=== PATIENT | female | born 1970 | race African-American/Black ===

== ENCOUNTER 2017-06-26 20:57 | Emergency (ER) | payer OTHER ==
[2017-06-26 21:05] VITALS: BP 122/74; PULSE 87; TEMP 97.9
[2017-06-26] MEDS ORDERED: LIDOCAINE VISCOUS 2% ORAL/TOP 20 ML UNIT-DOSE CUP MM ONE (21:45)
--- NOTE | 2017-06-26 21:59 | PDOC ---
History of Present Illness - General Chief Complaint: Foreign Body (FB) Stated Complaint: FOOD STUCK IN THROAT Time Seen by Provider: 06/26/17 21:18 History Source: Patient Exam Limitations: No Limitations - History of Present Illness Initial Comments: 06/26/17 21:46 Patient is a 46 year old female with history of allergies complaining of foreign body sensation to the throat since 1945 this evening while eating soup. States she felt like a fish bone got stuck in her throat. States she's has been eating bread, potato, drank water, vomited and now feels pain straight across the throat. PMD: Dr. Ken ENT: Dr. Bell PMHX: as above PSOCHX: neg cig, etoh, drug ALL: NKDA GENERAL/CONSTITUTIONAL: [No fever or chills. No weakness. No weight change.] HEAD, EYES, EARS, NOSE AND THROAT: [No change in vision. No ear pain or discharge. No sore throat.] CARDIOVASCULAR: [No chest pain or shortness of breath.] RESPIRATORY: [No cough, wheezing, or hemoptysis.] GASTROINTESTINAL: [No nausea, vomiting, diarrhea or constipation. No rectal bleeding.] GENITOURINARY: [No dysuria, frequency, or change in urination.] MUSCULOSKELETAL: [No joint or muscle swelling or pain. No neck or back pain.] SKIN AND BREASTS: [No rash or easy bruising.] NEUROLOGIC: [No headache, vertigo, loss of consciousness, or loss of sensation.] PSYCHIATRIC: [No depression or anxiety.] ENDOCRINE: [No increased thirst. No abnormal weight change.] HEMATOLOGIC/LYMPHATIC: [No anemia, easy bleeding, or history of blood clots.] ALLERGIC/IMMUNOLOGIC: [No hives or skin allergy. No latex allergy.] GENERAL: [The patient is awake, alert, and fully oriented, in no acute distress. ] HEAD: [Normal with no signs of trauma.] EYES: [Pupils equal, round and reactive to light, extraocular movements intact, sclera anicteric, conjunctiva clear.] ENT: [Ears normal, nares patent, oropharynx clear, no FB noted, no exudates. Moist mucous membranes.] NECK: [Normal range of motion, supple without lymphadenopathy, JVD, or masses.] LUNGS: [Breath sounds equal, clear to auscultation bilaterally. No wheezes, and no crackles.] HEART: [Regular rate and rhythm, normal S1 and S2 without murmur, rub.] ABDOMEN: [Soft, nontender, normoactive bowel sounds. No guarding, no rebound. No masses.] EXTREMITIES: [Normal range of motion, no edema. No clubbing or cyanosis. No cords, erythema, or tenderness.] NEUROLOGICAL: [Cranial nerves II through XII grossly intact. Normal speech, normal gait.] PSYCH: [Normal mood, normal affect.] SKIN: [Warm, Dry, normal turgor, no rashes or lesions noted.] Past History - Past Medical History Allergies/Adverse Reactions: Allergies Allergy/AdvReac Type Severity Reaction Status Date / Time No Known Allergies Allergy Verified 06/26/17 21:01 Home Medications: Ambulatory Orders NK [No Known Home Medication] 06/26/17 COPD: No - Suicide/Smoking/Psychosocial Hx Smoking History: Never smoked *Physical Exam - Vital Signs Last Vital Signs Temp Pulse Resp BP Pulse Ox 97.9 F 87 18 122/74 99 06/26/17 21:04 06/26/17 21:04 06/26/17 21:04 06/26/17 21:04 06/26/17 21:04 Medical Decision Making - Medical Decision Making 06/26/17 21:59 Patient is a 46 year old female with history of allergies complaining of foreign body sensation to the throat since 1945 this evening while eating soup consitent with Fb sensation. given bread and water in the ED and tolerating given viscous lidocaine, feels better I discussed the physical exam findings, ancillary test results and final diagnoses with the patient. I answered all of the patient's questions. The patient was satisfied with the care received and felt comfortable with the discharge plan and treatment plan. The Patient agrees to follow up with the primary care physician within 24-72 hours. Advised to follow up with ENT tomorrow. 06/26/17 22:35 *DC/Admit/Observation/Transfer Diagnosis at time of Disposition: Foreign body sensation in throat - Discharge Dispostion Disposition: HOME Condition at time of disposition: Stable - Referrals Referrals: Devika Cline MD [Primary Care Provider] - - Patient Instructions Additional Instructions: Your Discharge Instructions: You must call primary care physician within 24 hours to arrange follow-up. Return to the Emergency Department with any new, persistent or worsening symptoms, for fever, chills, SOB, dizziness or any other concerning changes that may occur. He was follow-up with ENT tomorrow. - Post Discharge Activity
[2017-06-26] MEDS ORDERED: LIDOCAINE VISCOUS 2% ORAL/TOP 20 ML UNIT-DOSE CUP ONE (22:19)
== END 2017-06-26 22:26 | disposition home or self-care (01) ==
LOC: JER 20:57
DX: R09.89 Other specified symptoms and signs involving the circulatory and respiratory systems (principal)
CPT/HCPCS: 99281-25

== ENCOUNTER 2018-01-13 02:38 | Emergency (ER) | payer OTHER ==
[2018-01-13] MEDS ORDERED: diphenhydrAMINE HCL 25 MG CAPSULE (FP) PO ONE ×2 (03:00→03:04)
[2018-01-13] MEDS ORDERED: RANITIDINE HCL 150 MG TABLET (FP) PO ONE (03:00)
[2018-01-13] MEDS ORDERED: predniSONE 20 MG TABLET (UD) PO ONE (03:00)
--- NOTE | 2018-01-13 03:01 | PDOC ---
Attending Attestation - Resident Resident Name: [email or web address] - ED Attending Attestation I have performed the following: I have examined & evaluated the patient, The case was reviewed & discussed with the resident, I agree w/resident's findings & plan, Exceptions are as noted <Alex Duong - Last Filed: 01/13/18 03:00> - HPI HPI: 01/13/18 03:02 The patient is a 47 year old female with a past medical history of severe fish allergy who presents to the emergency department with an allergic reaction for 2 hours. The patient states that she was taking a shower and after shampooing her hair she became itchy and short of breath. She reports that she used an epipen to treat symptoms with moderate relief. - Physicial Exam PE: 01/13/18 03:02 GENERAL: Well-appearing, well-nourished. No apparent distress. HEENT: Normocephalic, atraumatic. PERRL, EOM intact. CARDIOVASCULAR: Normal S1, S2. Regular rate and rhythm. PULMONARY: Clear to auscultation bilaterally. ABDOMEN: Soft, non-distended, non-tender. EXTREMITIES: Normal ROM in all four extremities. No gross deformities. SKIN: Warm, dry. No rash NEUROLOGICAL: No focal neurological deficits. - Medical Decision Making 01/13/18 03:02 Documentation prepared by Tip Merino, acting as emergency medical technician basic for Alex Duong DO. <Tip Merino - Last Filed: 01/13/18 03:02>
[2018-01-13] MEDS ORDERED: RANITIDINE HCL 150 MG TABLET (FP) ONE (03:04)
[2018-01-13] MEDS ORDERED: predniSONE 20 MG TABLET (UD) ONE (03:04)
[2018-01-13 03:11] VITALS: BP 130/82; PULSE 92; TEMP 98.3; BMI 31.1
--- NOTE | 2018-01-13 03:11 | PDOC ---
History of Present Illness - General Stated Complaint: ALLERGIC REACTION Time Seen by Provider: 01/13/18 02:54 History Source: Patient Exam Limitations: No Limitations - History of Present Illness Initial Comments: 01/13/18 03:04 Patient is a 47F with history of fish allergy with epi-pen here today complaining of an allergic reaction a hair dye she used. This occurred 1.5 hours ago. She says that she felt very itchy and her lips were swelling so she used her epi-pen. Denies fevers, chills, nausea, vomiting. Denies chest pain and shortness of breath. She states that her symptoms quickly improved after the epi-pen. Past History - Past Medical History Allergies/Adverse Reactions: Allergies Allergy/AdvReac Type Severity Reaction Status Date / Time No Known Allergies Allergy Verified 01/13/18 03:07 Home Medications: Ambulatory Orders Epinephrine [Epipen] 0.3 mg IJ ONCE #1 auto.injct 01/13/18 NK [No Known Home Medication] 01/13/18 COPD: No - Suicide/Smoking/Psychosocial Hx Smoking History: Never smoked Review of Systems - Review of Systems Comments:: 01/13/18 03:11 GENERAL/CONSTITUTIONAL: No fever or chills. No weakness. HEAD, EYES, EARS, NOSE AND THROAT: No change in vision. No sore throat. CARDIOVASCULAR: No chest pain or shortness of breath RESPIRATORY: No cough, wheezing, or hemoptysis. GASTROINTESTINAL: No nausea, vomiting, diarrhea or constipation. GENITOURINARY: No dysuria, frequency, or change in urination. MUSCULOSKELETAL: No joint or muscle swelling or pain. No neck or back pain. SKIN: No rash NEUROLOGIC: No headache, vertigo, loss of consciousness, or change in strength/ sensation. ENDOCRINE: No increased thirst. No abnormal weight change HEMATOLOGIC/LYMPHATIC: No anemia, easy bleeding, or history of blood clots. ALLERGIC/IMMUNOLOGIC: Positive for uriticaria *Physical Exam - Physical Exam Comments: 01/13/18 03:11 GENERAL: Awake, alert, and fully oriented, in no acute distress HEAD: No signs of trauma, normocephalic, atraumatic EYES: PERRLA, EOMI, sclera anicteric, conjunctiva clear ENT: Auricles normal inspection, hearing grossly normal, nares patent, oropharynx clear without exudates. Moist mucosa NECK: Normal ROM, supple, no lymphadenopathy, JVD, or masses LUNGS: No distress, speaks full sentences, clear to auscultation bilaterally HEART: Regular rate and rhythm, normal S1 and S2, no murmurs, rubs or gallops, peripheral pulses normal and equal bilaterally. ABDOMEN: Soft, nontender, normoactive bowel sounds. No guarding, no rebound. No masses EXTREMITIES: Normal inspection, Normal range of motion, no edema. No clubbing or cyanosis. NEUROLOGICAL: Cranial nerves II through XII grossly intact. Normal speech, normal gait, no focal sensorimotor deficits SKIN: Warm, Dry, normal turgor, no rashes or lesions noted. Medical Decision Making - Medical Decision Making 01/13/18 03:13 Patient is 47F with history of fish allergy here today with allergic reaction s/ p epi-pen usage. Vital signs stable and normal, patient appears well. Will treat with steroids, benadryl and h2 manuel PO, observe and discharge. Will send home with prednisone and prescription for epi-pen. *DC/Admit/Observation/Transfer Diagnosis at time of Disposition: Allergic reaction - Discharge Dispostion Disposition: HOME Condition at time of disposition: Good Decision to Admit order: No - Prescriptions Prescriptions: Epinephrine [Epipen] 0.3 mg IJ ONCE #1 auto.injct - Referrals Referrals: Cosme Coley MD [Primary Care Provider] - - Patient Instructions Printed Discharge Instructions: DI for General Allergic Reactions Additional Instructions: Please return if you have any new, worsening or concerning symptoms. Please follow up with your primary care physician this week. - Post Discharge Activity
== END 2018-01-13 03:20 | disposition home or self-care (01) ==
LOC: JER 02:38
DX: T78.40XA Allergy, unspecified, initial encounter (principal); X58.XXXA Exposure to other specified factors, initial encounter; Y92.9 Unspecified place or not applicable; Y93.9 Activity, unspecified
CPT/HCPCS: 99282-25

== ENCOUNTER 2019-01-05 19:18 | Emergency (ER) | payer OTHER | END 2019-01-05 20:22 | disposition home or self-care (01) | LOC: JERFT 19:18 ==

== ENCOUNTER 2024-05-04 12:32 | Emergency (ER) | payer OTHER ==
[2024-05-04 12:41] VITALS: BP 122/80; PULSE 86; RESP 20; TEMP 99; BMI 29.2
[2024-05-04 13:50] LABS: BASO % 0.9 % (0-2.0); EOS % 0.9 % (0-4.5); HEMATOCRIT 40.4 % (32.4-45.2); HEMOGLOBIN 13.3 GM/dL (10.7-15.3); LYMPH % 36.8 % (8-40); MCH 28.5 pg (25.7-33.7); MEAN CELL VOLUME 86.5 fl (80-96); MEAN PLT VOLUME 7.8 fl (7.5-11.1); MONO % 5.9 % (3.8-10.2); NEUT % 55.5 % (42.8-82.8); PLATELET COUNT 269 10^3/uL (134-434); RBC 4.67 M/mm3 (3.60-5.2); RDW 14.2 % (11.6-15.6); WHITE BLOOD COUNT 8.6 K/mm3 (4.0-10.0)
[2024-05-04 14:15] LABS: POTASSIUM 4.5 mmol/L (3.5-5.1)
[2024-05-04 14:16] LABS: CALCIUM 9.8 mg/dL (8.5-10.1)
[2024-05-04 14:17] LABS: BLOOD UREA NITROGEN 10.6 mg/dL (7-18)
[2024-05-04 14:20] LABS: CREATININE 0.8 mg/dL (0.55-1.3)
[2024-05-04 14:39] LABS: ERYTHROCYTE SEDIMENTATION RATE 49 mm/hr (0-30)
[2024-05-04] MEDS ORDERED: SULFAMETHOXAZOLE/TRIMETHOPRIM 800MG/160MG D.S. TABLET ONE (14:48)
[2024-05-04] MEDS: SULFAMETHOXAZOLE/TRIMETHOPRIM 800MG/160MG D.S. TABLET PO ONE (14:54)
== END 2024-05-04 14:55 | disposition home or self-care (01) ==
LOC: JERFT 12:32
DX: L03.012 Cellulitis of left finger (principal)
CPT/HCPCS: 36415; 73130-TC-LT-FY; 80048; 85025; 85651; 99284-25